=== PATIENT | female | born 1945 | race African-American/Black ===

== ENCOUNTER → 2017-08-31 | Outpatient (CLI) | payer OTHER ==
--- NOTE | 2017-08-31 16:18 | Pulmonary Function Test ---
Pulmonary Function Test Date of Procedure:: 08/31/17 INDICATION:: Dyspnea Referring Provider: Dr.Eva Anny [employer] Specialist: Bhavya Brower [employer] GUIDE - Report Spirometry: FVC 2.67 L 88% FEV1 2.12 L 94% FEV1/FVC % 79 predicted 81 FEF 25-75% 2.04 L 102% Impression: This study does not demonstrate significant evidence for obstructive ventilatory defect.
== END ==
LOC: RT 13:29
PROVIDERS: ATTEND Family Medicine
DX: J45.909 Unspecified asthma, uncomplicated (principal)
CPT/HCPCS: 94010